=== PATIENT | female | born 1980 | race African-American/Black ===

== ENCOUNTER 2017-04-02 09:18 | Emergency (ER) | payer OTHER ==
[~2017-04-02] VITALS: Ht 180.3 cm; Wt 65.8 kg
[2017-04-02] MEDS ORDERED: IBUPROFEN600 MG ORAL (09:54)
[2017-04-02] MEDS ORDERED: NORCO 5-325 TA1 EAC1 ORAL (09:54)
[2017-04-02] MEDS ORDERED: SILVADENE20 GM TP (09:54)
[2017-04-02 09:57] VITALS: BP 132/91
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
[2017-04-02] MEDS ORDERED: GENOPTIC O.O1 APPLIC TOPIC (09:59)
[2017-04-02] MEDS ORDERED: Tetanus/Diptheria/Pertussis Vaccine 0.5ml Syr IM ONE (10:00)
[2017-04-02 10:30] VITALS: BP 122/71
== END 2017-04-02 10:33 | disposition home or self-care (01) ==
LOC: EMR 09:40
DX: T21.21XA Burn of second degree of chest wall, initial encounter (principal); T20.13XA Burn of first degree of chin, initial encounter; T31.0 Burns involving less than 10% of body surface; X11.8XXA Contact with other hot tap-water, initial encounter; Y92.238 Other place in hospital as the place of occurrence of the external cause; Z23 Encounter for immunization; J45.909 Unspecified asthma, uncomplicated; Z88.0 Allergy status to penicillin
CPT/HCPCS: 16020; 81025; 90471; 90715; 99284; Z7502; 96372